=== PATIENT | male | born 1960 | race African-American/Black ===

== ENCOUNTER 2022-07-15 08:34 | Emergency (ER) | payer OTHER ==
[2022-07-15 08:47] VITALS: TEMP 97.6; BMI 30.4
[2022-07-15 10:29] LABS: BASO % 0.6 % (0-2.0); EOS % 1.8 % (0-4.5); HEMATOCRIT 41.4 % (35.4-49); LYMPH % 36.1 % (8-40); MCH 32.1 pg (25.7-33.7); MCHC 33.8 g/dl (32.0-35.9); MEAN CELL VOLUME 95.1 fl (80-96); MONO % 6.2 % (3.8-10.2); NEUT % 55.3 % (42.8-82.8); PLATELET COUNT 229 10^3/uL (134-434); RBC 4.35 M/mm3 (4.00-5.60); RDW 13.1 % (11.9-15.9)
[2022-07-15 10:37] LABS: INR 0.97 (0.83-1.09); PROTHROMBIN TIME (PATIENT) 11.3 SEC (9.7-13.0)
[2022-07-15 10:48] LABS: CHLORIDE 101 mmol/L (98-107); SODIUM 136 mmol/L (136-145)
[2022-07-15 10:49] LABS: ALBUMIN 3.7 g/dl (3.4-5.0); BLOOD UREA NITROGEN 9.2 mg/dL (7-18); CALCIUM 9.3 mg/dL (8.5-10.1); CO2 31 mmol/L (21-32); GLUCOSE,RANDOM 95 mg/dL (74-106); LIPASE 56 U/L (73-393)
[2022-07-15 10:51] LABS: MAGNESIUM 2.1 mg/dL (1.8-2.4)
[2022-07-15 10:53] LABS: SGOT/AST 57 U/L (15-37); SGPT/ALT 26 U/L (13-61)
[2022-07-15 10:55] LABS: BILIRUBIN,TOTAL 0.5 mg/dL (0.2-1); TOT PROT 8.8 g/dl (6.4-8.2)
[2022-07-15 10:56] LABS: ALK PHOS 66 U/L (45-117)
[2022-07-15 11:01] LABS: ANION GAP 4 MMOL/L (8-16); POTASSIUM 6.2 mmol/L (3.5-5.1)
[2022-07-15] MEDS ORDERED: amLODIPine BESYLATE 5 MG TABLET (FP) PO ONE (11:05)
[2022-07-15] MEDS ORDERED: amLODIPine BESYLATE 5 MG TABLET (FP) ONE (11:34)
[2022-07-15 11:38] VITALS: PULSE 60; RESP 20
[2022-07-15 12:02] VITALS: BP 176/99
== END 2022-07-15 13:13 | disposition home or self-care (01) ==
LOC: JER 08:34
DX: R11.0 Nausea (principal); R51.9 Headache, unspecified; I10 Essential (primary) hypertension; R00.1 Bradycardia, unspecified; Z20.822 Contact with and (suspected) exposure to COVID-19
CPT/HCPCS: 0241U-QW; 36415; 71046-TC-FY; 80053; 83690; 83735; 84484; 85025; 85610; 85730; 93005; 93010; 99285-25

== ENCOUNTER 2022-07-19 08:50 | Inpatient (IN) | payer OTHER ==
[2022-07-19] MEDS ORDERED: SODIUM CHLORIDE 0.9% 500 ML INFUS.BAG IV ONE (09:15)
[2022-07-19 09:59] LABS: BASO % 0.4 % (0-2.0); EOS % 0.2 % (0-4.5); HEMATOCRIT 31.9 % (35.4-49); HEMOGLOBIN 10.9 GM/dL (11.7-16.9); LYMPH % 27.9 % (8-40); MCH 32.4 pg (25.7-33.7); MCHC 34.2 g/dl (32.0-35.9); MEAN CELL VOLUME 94.8 fl (80-96); MEAN PLT VOLUME 8.4 fl (7.5-11.1); MONO % 7.9 % (3.8-10.2); NEUT % 63.6 % (42.8-82.8); PLATELET COUNT 232 10^3/uL (134-434); RBC 3.37 M/mm3 (4.00-5.60); RDW 13.5 % (11.9-15.9); WHITE BLOOD COUNT 12.4 K/mm3 (4.0-10.0)
[2022-07-19 10:00] LABS: INR 1.12 (0.83-1.09)
[2022-07-19 10:03] LABS: ACTIVATED PTT 29.2 SECONDS (25.2-36.5)
[2022-07-19 10:14] LABS: POTASSIUM 4.6 mmol/L (3.5-5.1)
[2022-07-19 10:19] LABS: ALBUMIN 3.3 g/dl (3.4-5.0); CALCIUM 8.8 mg/dL (8.5-10.1)
[2022-07-19 10:24] LABS: BILIRUBIN,TOTAL 0.4 mg/dL (0.2-1); TOT PROT 7.4 g/dl (6.4-8.2)
[2022-07-19 10:34] LABS: BLOOD UREA NITROGEN 46.4 mg/dL (7-18)
[2022-07-19] MEDS ORDERED: LACTATED RINGERS SOLUTION 1,000 ML/1,000 ML INFUS.BAG IV SCH (11:15)
[2022-07-19] MEDS ORDERED: PANTOPRAZOLE SODIUM 40 MG VIAL IVPUSH ONE (11:23)
[2022-07-19] MEDS ORDERED: PANTOPRAZOLE SODIUM 80 MG in SODIUM CHLORIDE 100 ML IVPB SCH (11:30)
[2022-07-19] MEDS ORDERED: ERYTHROMYCIN *INJECTION* 500 MG VIAL IVPB STA (11:40)
[2022-07-19] MEDS: PANTOPRAZOLE SODIUM 160 MG in SODIUM CHLORIDE 290 ML IVPB SCH (13:50)
[2022-07-19] MEDS ORDERED: ERYTHROMYCIN INJECTION - 250 MG in SODIUM CHLORIDE 100 ML IVPB ONE (14:00)
[2022-07-19] MEDS ORDERED: ceFAZolin SODIUM 1 GM VIAL ONE (15:16)
[2022-07-19] MEDS: MAG HYDROX/AL HYDROX/SIMETH 30 ML UNIT-DOSE CUP PO SCH ×2 (17:12→21:53)
[2022-07-19] MEDS: NICOTINE 21 MG/24 HOURS TOPICAL PATCH TD SCH (17:12)
[2022-07-19 18:31] VITALS: BMI 28.1
[2022-07-19 19:59] LABS: HEMOGLOBIN 8.8 GM/dL (11.7-16.9); MCH 31.1 pg (25.7-33.7); MCHC 32.6 g/dl (32.0-35.9); MEAN CELL VOLUME 95.5 fl (80-96); MEAN PLT VOLUME 8.1 fl (7.5-11.1); PLATELET COUNT 185 10^3/uL (134-434); RBC 2.83 M/mm3 (4.00-5.60); RDW 13.6 % (11.9-15.9)
[2022-07-19] MEDS: SUCRALFATE 1 GM/10 ML UNIT DOSE CUPS PO SCH (21:53)
[2022-07-20] MEDS: MAG HYDROX/AL HYDROX/SIMETH 30 ML UNIT-DOSE CUP PO SCH ×4 (04:45→21:44)
[2022-07-20 08:17] LABS: BASO % 0.8 % (0-2.0); EOS % 1.2 % (0-4.5); HEMATOCRIT 24.1 % (35.4-49); HEMOGLOBIN 7.9 GM/dL (11.7-16.9); LYMPH % 36.5 % (8-40); MCH 31.9 pg (25.7-33.7); MCHC 32.7 g/dl (32.0-35.9); MEAN CELL VOLUME 97.6 fl (80-96); MEAN PLT VOLUME 8.5 fl (7.5-11.1); MONO % 8.1 % (3.8-10.2); NEUT % 53.4 % (42.8-82.8); PLATELET COUNT 185 10^3/uL (134-434); RBC 2.47 M/mm3 (4.00-5.60); RDW 13.2 % (11.9-15.9); WHITE BLOOD COUNT 10.3 K/mm3 (4.0-10.0)
[2022-07-20 08:32] LABS: POTASSIUM 4.2 mmol/L (3.5-5.1)
[2022-07-20 08:34] LABS: CALCIUM 8.3 mg/dL (8.5-10.1)
[2022-07-20 08:35] LABS: ALBUMIN 2.9 g/dl (3.4-5.0); BLOOD UREA NITROGEN 24.4 mg/dL (7-18); MAGNESIUM 2.3 mg/dL (1.8-2.4)
[2022-07-20 08:38] LABS: CREATININE 0.9 mg/dL (0.55-1.3); PHOSPHOROUS 2.6 mg/dL (2.5-4.9)
[2022-07-20 08:39] LABS: BILIRUBIN,TOTAL 0.4 mg/dL (0.2-1)
[2022-07-20 08:40] LABS: TOT PROT 6.1 g/dl (6.4-8.2)
[2022-07-20] MEDS ORDERED: methaDONE HCL 10 MG TABLET PO SCH (08:45)
[2022-07-20] MEDS: SUCRALFATE 1 GM/10 ML UNIT DOSE CUPS PO SCH ×4 (09:28→21:30)
[2022-07-20] MEDS: PANTOPRAZOLE SODIUM 160 MG in SODIUM CHLORIDE 290 ML IVPB SCH (09:28)
[2022-07-20] MEDS: methaDONE 80 MG, methaDONE 20 MG PO SCH (09:28)
[2022-07-20] MEDS: NICOTINE 21 MG/24 HOURS TOPICAL PATCH TD SCH (09:28)
[2022-07-20 13:48] LABS: BASO % 0.7 % (0-2.0); EOS % 1.9 % (0-4.5); HEMATOCRIT 21.8 % (35.4-49); MCH 31.4 pg (25.7-33.7); MCHC 32.3 g/dl (32.0-35.9); MEAN CELL VOLUME 97.4 fl (80-96); MEAN PLT VOLUME 8.4 fl (7.5-11.1); MONO % 6.8 % (3.8-10.2); NEUT % 51.6 % (42.8-82.8); PLATELET COUNT 156 10^3/uL (134-434); RBC 2.24 M/mm3 (4.00-5.60); RDW 13.2 % (11.9-15.9); WHITE BLOOD COUNT 12.5 K/mm3 (4.0-10.0)
[2022-07-20 17:29] LABS: BASO % 0.7 % (0-2.0); EOS % 2.4 % (0-4.5); HEMATOCRIT 20.9 % (35.4-49); LYMPH % 39.3 % (8-40); MCH 31.4 pg (25.7-33.7); MCHC 32.9 g/dl (32.0-35.9); MEAN CELL VOLUME 95.6 fl (80-96); MONO % 8.3 % (3.8-10.2); NEUT % 49.3 % (42.8-82.8); PLATELET COUNT 154 10^3/uL (134-434); RBC 2.19 M/mm3 (4.00-5.60); RDW 13.3 % (11.9-15.9); WHITE BLOOD COUNT 11.3 K/mm3 (4.0-10.0)
[2022-07-20 17:33] LABS: HEMOGLOBIN 6.9 GM/dL (11.7-16.9)
[2022-07-21 00:19] LABS: BASO % 0.6 % (0-2.0); EOS % 2.5 % (0-4.5); HEMATOCRIT 25.2 % (35.4-49); HEMOGLOBIN 8.5 GM/dL (11.7-16.9); LYMPH % 33.6 % (8-40); MCH 30.7 pg (25.7-33.7); MCHC 33.5 g/dl (32.0-35.9); MEAN CELL VOLUME 91.4 fl (80-96); MEAN PLT VOLUME 7.5 fl (7.5-11.1); MONO % 9.2 % (3.8-10.2); NEUT % 54.1 % (42.8-82.8); PLATELET COUNT 156 10^3/uL (134-434); RBC 2.76 M/mm3 (4.00-5.60); RDW 16.3 % (11.9-15.9); WHITE BLOOD COUNT 14.7 K/mm3 (4.0-10.0)
[2022-07-21] MEDS: MAG HYDROX/AL HYDROX/SIMETH 30 ML UNIT-DOSE CUP PO SCH ×2 (05:19→09:21)
[2022-07-21] MEDS: PANTOPRAZOLE SODIUM 160 MG in SODIUM CHLORIDE 290 ML IVPB SCH ×2 (05:20→07:27)
[2022-07-21] MEDS: methaDONE 80 MG, methaDONE 20 MG PO SCH (05:20)
[2022-07-21 08:10] LABS: BASO % 0.6 % (0-2.0); EOS % 2.6 % (0-4.5); HEMATOCRIT 23.2 % (35.4-49); HEMOGLOBIN 7.9 GM/dL (11.7-16.9); LYMPH % 33.3 % (8-40); MCH 31.9 pg (25.7-33.7); MCHC 34.1 g/dl (32.0-35.9); MEAN CELL VOLUME 93.5 fl (80-96); MEAN PLT VOLUME 8.3 fl (7.5-11.1); MONO % 9.2 % (3.8-10.2); NEUT % 54.3 % (42.8-82.8); PLATELET COUNT 156 10^3/uL (134-434); RBC 2.48 M/mm3 (4.00-5.60); RDW 16.5 % (11.9-15.9); WHITE BLOOD COUNT 12.7 K/mm3 (4.0-10.0)
[2022-07-21 08:21] LABS: CALCIUM 8.2 mg/dL (8.5-10.1)
[2022-07-21 08:22] LABS: ALBUMIN 2.9 g/dl (3.4-5.0); BLOOD UREA NITROGEN 15.8 mg/dL (7-18); MAGNESIUM 2.5 mg/dL (1.8-2.4)
[2022-07-21 08:25] LABS: CREATININE 0.9 mg/dL (0.55-1.3); PHOSPHOROUS 2.5 mg/dL (2.5-4.9)
[2022-07-21 08:26] LABS: BILIRUBIN,TOTAL 0.7 mg/dL (0.2-1); TOT PROT 5.8 g/dl (6.4-8.2)
[2022-07-21] MEDS: SUCRALFATE 1 GM/10 ML UNIT DOSE CUPS PO SCH ×2 (09:21→15:16)
[2022-07-21] MEDS: NICOTINE 21 MG/24 HOURS TOPICAL PATCH TD SCH (09:21)
[2022-07-21] MEDS ORDERED: FUROSEMIDE 40 MG/4 ML INJECTABLE VIAL IVPUSH PRN ×2 (09:48→18:36)
[2022-07-21] MEDS ORDERED: amLODIPine BESYLATE 5 MG TABLET (FP) PO SCH (10:00)
[2022-07-21 18:19] LABS: HEMATOCRIT 26.9 % (35.4-49); HEMOGLOBIN 9.1 GM/dL (11.7-16.9); MCH 30.5 pg (25.7-33.7); MCHC 33.8 g/dl (32.0-35.9); MEAN CELL VOLUME 90.5 fl (80-96); MEAN PLT VOLUME 7.6 fl (7.5-11.1); PLATELET COUNT 155 10^3/uL (134-434); RBC 2.97 M/mm3 (4.00-5.60); RDW 16.6 % (11.9-15.9); WHITE BLOOD COUNT 15.1 K/mm3 (4.0-10.0)
[2022-07-21] MEDS ORDERED: CLARITHROMYCIN 500 MG TABLET (UD) PO SCH (22:00)
[2022-07-21] MEDS ORDERED: AMOXICILLIN 500 MG CAPSULE (FP) PO SCH ×2 (22:00)
[2022-07-21] MEDS: CLARITHROMYCIN 500 MG TABLET (UD) PO SCH (23:09)
[2022-07-21] MEDS: AMOXICILLIN 500 MG CAPSULE (FP) PO SCH (23:09)
[2022-07-22] MEDS ORDERED: PANTOPRAZOLE SODIUM 160 MG in SODIUM CHLORIDE 290 ML IVPB SCH (06:00)
[2022-07-22] MEDS: methaDONE 80 MG, methaDONE 20 MG PO SCH (06:29)
[2022-07-22] MEDS: amLODIPine BESYLATE 5 MG TABLET (FP) PO SCH (09:24)
[2022-07-22] MEDS: NICOTINE 21 MG/24 HOURS TOPICAL PATCH TD SCH (09:24)
[2022-07-22] MEDS: AMOXICILLIN 500 MG CAPSULE (FP) PO SCH ×2 (09:24→21:58)
[2022-07-22] MEDS: CLARITHROMYCIN 500 MG TABLET (UD) PO SCH ×2 (09:24→21:59)
[2022-07-22 09:53] LABS: BASO % 0.4 % (0-2.0); EOS % 2.6 % (0-4.5); HEMOGLOBIN 8.8 GM/dL (11.7-16.9); LYMPH % 23.7 % (8-40); MCH 31.1 pg (25.7-33.7); MCHC 33.9 g/dl (32.0-35.9); MEAN CELL VOLUME 91.7 fl (80-96); MEAN PLT VOLUME 7.8 fl (7.5-11.1); MONO % 4.7 % (3.8-10.2); NEUT % 68.6 % (42.8-82.8); PLATELET COUNT 163 10^3/uL (134-434); RBC 2.83 M/mm3 (4.00-5.60); RDW 16.9 % (11.9-15.9); WHITE BLOOD COUNT 11.2 K/mm3 (4.0-10.0)
[2022-07-22] MEDS ORDERED: PANTOPRAZOLE 40 MG TABLET PO SCH ×2 (10:00)
[2022-07-22 10:07] LABS: POTASSIUM 3.7 mmol/L (3.5-5.1)
[2022-07-22 10:18] LABS: CALCIUM 8.5 mg/dL (8.5-10.1)
[2022-07-22 10:19] LABS: BLOOD UREA NITROGEN 8.3 mg/dL (7-18); CREATININE 0.9 mg/dL (0.55-1.3); MAGNESIUM 2.4 mg/dL (1.8-2.4); PHOSPHOROUS 2.8 mg/dL (2.5-4.9)
[2022-07-22 10:20] LABS: BILIRUBIN,TOTAL 0.7 mg/dL (0.2-1); TOT PROT 6.2 g/dl (6.4-8.2)
[2022-07-22 14:21] VITALS: RESP 18
[2022-07-22 15:45] LABS: BASO % 0.3 % (0-2.0); EOS % 2.3 % (0-4.5); HEMOGLOBIN 8.3 GM/dL (11.7-16.9); LYMPH % 28.2 % (8-40); MCH 31.5 pg (25.7-33.7); MCHC 34.7 g/dl (32.0-35.9); MEAN CELL VOLUME 90.8 fl (80-96); MEAN PLT VOLUME 7.6 fl (7.5-11.1); MONO % 8.4 % (3.8-10.2); NEUT % 60.8 % (42.8-82.8); PLATELET COUNT 157 10^3/uL (134-434); RBC 2.64 M/mm3 (4.00-5.60); RDW 16.5 % (11.9-15.9); WHITE BLOOD COUNT 10.9 K/mm3 (4.0-10.0)
[2022-07-22] MEDS: PANTOPRAZOLE 40 MG TABLET PO SCH (21:59)
[2022-07-23] MEDS: methaDONE 80 MG, methaDONE 20 MG PO SCH (07:40)
[2022-07-23 09:12] LABS: HEMATOCRIT 27.2 % (35.4-49); HEMOGLOBIN 9.2 GM/dL (11.7-16.9); MCH 31.5 pg (25.7-33.7); MCHC 33.8 g/dl (32.0-35.9); MEAN PLT VOLUME 7.6 fl (7.5-11.1); PLATELET COUNT 187 10^3/uL (134-434); RBC 2.93 M/mm3 (4.00-5.60); WHITE BLOOD COUNT 9.4 K/mm3 (4.0-10.0)
[2022-07-23] MEDS: NICOTINE 21 MG/24 HOURS TOPICAL PATCH TD SCH (09:24)
[2022-07-23] MEDS: PANTOPRAZOLE 40 MG TABLET PO SCH (09:24)
[2022-07-23] MEDS: amLODIPine BESYLATE 5 MG TABLET (FP) PO SCH (09:24)
[2022-07-23] MEDS: AMOXICILLIN 500 MG CAPSULE (FP) PO SCH (09:25)
[2022-07-23] MEDS: CLARITHROMYCIN 500 MG TABLET (UD) PO SCH (09:25)
[2022-07-23 15:02] VITALS: BP 122/80; PULSE 86; TEMP 98.1
== END 2022-07-23 15:00 | disposition home or self-care (01) | DRG 241 ==
LOC: JER 08:50 → JERBED 12:59 → J4W 16:56 → OBSVTOIN 07-20 10:15 → J6S 07-21 18:50
PROVIDERS: ADMIT Internal Medicine; ATTEND Internal Medicine
PROC: 0DB68ZX Excision of Stomach, Via Natural or Artificial Opening Endoscopic, Diagnostic (ICD-10-PCS; principal; 2022-07-19 14:30)
PROC: 30233N1 Transfusion of Nonautologous Red Blood Cells into Peripheral Vein, Percutaneous Approach (ICD-10-PCS; 2022-07-20)
DX: K25.4 Chronic or unspecified gastric ulcer with hemorrhage (principal); F11.20 Opioid dependence, uncomplicated; I10 Essential (primary) hypertension; B96.81 Helicobacter pylori [H. pylori] as the cause of diseases classified elsewhere; F17.210 Nicotine dependence, cigarettes, uncomplicated; D62 Acute posthemorrhagic anemia
CPT/HCPCS: 36415; 36430; 71045-TC-FY; 74178-TC; 80053; 82105; 82272; 82728; 83540; 83550; 83735; 84100; 84484; 85025; 85027; 85045; 85610; 85730; 86140; 86704; 86850; 86900; 86901; 86922; 87340; 87517; 87522; 88305-TC; 88342-TC; 93005; 93010; 94010; 97116-GP; 97162-GP; 99291; G0378; P9038; P9058; Q9967